=== PATIENT | female | born 1965 | race Two or more races ===

== ENCOUNTER 2023-04-21 19:23 | Emergency (ER) | payer OTHER ==
[~2023-04-21] VITALS: Ht 162.6 cm; Wt 67.1 kg
[2023-04-21] MEDS ORDERED: LIDOCAINE VISCOUS 2% UD 15 ML UDC MM ONE (20:30)
[2023-04-21] MEDS ORDERED: dexaMETHasone SOD PHOSPHATE 10 MG/ML VIAL MC ONE (20:30)
[2023-04-21] MEDS ORDERED: LIDOCAINE VISCOUS 2% UD 15 ML UDC ONE (20:30)
[2023-04-21] MEDS ORDERED: dexaMETHasone SOD PHOSPHATE 10 MG/ML VIAL ONE (20:30)
[2023-04-21] MEDS ORDERED: MAG HYDROX/AL HYDROX/SIMETH 30 ML UDC ONE (20:30)
[2023-04-21] MEDS ORDERED: MAG HYDROX/AL HYDROX/SIMETH 30 ML UDC PO ONE (20:30)
[2023-04-21 21:01] VITALS: BP 133/90; TEMP 98; O2SAT 98
== END 2023-04-21 21:01 | disposition home or self-care (01) ==
LOC: ER 19:26
DX: J02.9 Acute pharyngitis, unspecified (principal); Z98.890 Other specified postprocedural states; Z88.0 Allergy status to penicillin
CPT/HCPCS: 99283; J1100